=== PATIENT | female | born 1970 | race Caucasian/White ===

== ENCOUNTER 2020-11-18 07:43 | Observation (INO) | payer OTHER ==
[2020-11-18] MEDS ORDERED: ASPIRIN EC 325 MG TAB PO ONE (08:30)
[2020-11-18 08:48] LABS: Basophils % (Auto) 0.3 % (0.0-1.8); Eosinophils # (Auto) 0.1 K/mm3 (0.0-0.4); Eosinophils % (Auto) 1.2 % (0.0-4.3); Hematocrit 37.3 % (30.3-42.9); Hemoglobin 12.5 gm/dl (10.1-14.3); Lymphocytes # (Auto) 1.6 K/mm3 (1.2-5.4); Mean Corpuscular HGB Conc 34 % (30-34); Mean Corpuscular Volume 93 fl (79-97); Monocytes # (Auto) 0.4 K/mm3 (0.0-0.8); Monocytes % (Auto) 8.9 % (0.0-7.3); Platelet Count 379 K/mm3 (140-440); Red Blood Count 4.02 M/mm3 (3.65-5.03)
[2020-11-18 08:59] LABS: INR 0.94 (0.87-1.13)
[2020-11-18 09:00] LABS: Partial Thromboplastin Time 32.3 Sec. (24.2-36.6)
[2020-11-18] MEDS ORDERED: SODIUM CHLORIDE 0.9% 500 ML 500 ML IV SCH ×2 (09:00→14:00)
[2020-11-18 09:04] LABS: Blood Urea Nitrogen 6 mg/dL (7-17); Calcium 8.8 mg/dL (8.4-10.2); Hemolysis Index 12
[2020-11-18 09:08] LABS: BUN/Creatinine Ratio 15
[2020-11-18] MEDS ORDERED: HEPARIN/NS 5000 UNIT/500ML 1,000 ML IR ONE (09:23)
[2020-11-18] MEDS ORDERED: VERAPAMIL 5 MG/2 ML INJ ONE (09:23)
[2020-11-18] MEDS: MIDAZOLAM 2 MG/2 ML INJ ONE ×3 (10:19→10:56)
[2020-11-18] MEDS: fentaNYL 100 MCG/2 ML INJ ONE ×2 (10:19→10:41)
[2020-11-18] MEDS: HEPARIN 10,000 UNITS/10 ML VIAL ONE ×3 (10:20→10:52)
[2020-11-18] MEDS: LIDOCAINE (2%) 20 MG/1 ML VIAL 20 ML MDV INFILTRATI ONE ×3 (10:20→10:54)
[2020-11-18] MEDS: NITROGLYCERIN SYRINGE 3 ML ONE ×2 (10:20→10:43)
[2020-11-18] MEDS ORDERED: ATROPINE 0.1% (1 MG/10 ML) CARDIAC SYRINGE ONE (10:56)
[2020-11-18] MEDS ORDERED: PRASUGREL 10 MG TAB PO ONE (11:07)
[2020-11-18] MEDS ORDERED: ALUM-MAG HYDROXIDE-SIMETHICONE 200-200-20MG/5ML ORAL LIQD 30 ML ONE (11:08)
--- NOTE | 2020-11-18 11:35 | Cardiac Catherization Report ---
LEFT HEART CATHETERIZATION REFERRING PHYSICIAN: Dr. Giulia Kenyon. INDICATION FOR PROCEDURE: The patient is a very pleasant 50-year-old [place] woman who had an abnormal EKG with very typical chest pain radiating to the left arm. Nonsmoker. Continues to have chest pain despite multiple antianginal medications, referred for left heart catheterization. Risks, benefits, alternatives explained at length prior to obtaining informed consent. PROCEDURE IN DETAIL: The patient was brought to the photographic laboratory supervisor in a postabsorptive state, prepped and draped in sterile fashion. Louis's test in right hand was normal. A 2 mL of 2% lidocaine used to anesthetize the right wrist. A standard 6-Polish hydrophilic sheath used to cannulate the right radial artery via modified Seldinger technique. All exchanges performed to exchange a J-tip guidewire. JL3.5 catheter used to engage the left main. No dampening or ventricularization. Cineangiography performed in all projections. JR4 catheter was used to cross the aortic valve under fluoroscopic guidance. Left ventriculography performed in 30 RUIZ and 30 RAMESH projections via hand injections, catheter flushed. Manual pullback performed with continuous pressure monitoring. Catheter used to engage the right coronary. No dampening or ventricularization. Cineangiography performed in all projections. Next, catheter removed from the body. She developed some right radial spasm. We changed to a groin approach. A 6-Polish sheath placed in the right common femoral artery via modified Seldinger technique. DATA: Aortic pressure is 140/60, LV pressure is 140. LVP of 12 mmHg. Left ventriculography revealed normal systolic performance with estimated ejection fraction of 55-60%. No evidence of aortic stenosis. The patient remained in normal sinus rhythm throughout the procedure. CORONARY ANATOMY: This is a right dominant system. Left main without significant disease, bifurcates left anterior descending and left circumflex. Left circumflex, moderate sized vessel, courses AV groove. No significant disease. LAD is a moderate sized vessel, courses anterior intergroove, wraps around the apex. There is a 95% ulcerated proximal/high mid LAD stenosis clearly the culprit vessel. JANY 3 flow is identified. The right coronary is a moderate sized vessel, courses AV groove. No significant disease. The patient upon injection of the left system developed chest pain, hypotension and ST depression. Given active symptoms, ST changes and culprit lesion, we decided to proceed with PCI urgently. Heparin given. Abnormal ACT is confirmed. Using EBU 3.5 guide to engage the left main. A [place] wire to cross the lesion without difficulty. We used a 2.75 x 15 [place] drug-eluting stent deployed at 14 ELYSE for 30 seconds. Excellent angiographic result. Intravascular ultrasound was performed, multiple passes were made, reveals well apposed and well expanded stent. No complications. Final angiogram reveals excellent result, JANY 3 flow, no evidence of complication or dissection. I directly supervised the administration of moderate sedation with fentanyl and Versed from 10:40 a.m. to 11:20 a.m. No immediate complications. CONCLUSIONS: 1. Severe single vessel coronary artery disease with ulcerated culprit 95% high mid/proximal LAD stenosis. Successful IVUS guided percutaneous coronary intervention and placement of drug-eluting stent (Tr 2.75 x 15) with excellent final angiographic and ultrasonographic results. No other significant obstructive disease noted. 2. Preserved left ventricular systolic performance, estimated ejection fraction of 55-60%. 3. No evidence of aortic stenosis. 4. Normal LVEDP. The patient has been loaded with aspirin and Plavix, we will initiate statin therapy. Hold off on any beta blockade due to baseline sinus bradycardia. The patient is already on ARB. The patient is clinically stable, chest pain free. We will admit overnight, standard groin radial care. Aspirin, Effient, statin therapy. Discussed with her son, Bulmaro at [phone] at length. Anticipate a.m. discharge. JOB# [id number] SBM/NTS
[2020-11-18] MEDS: HYDROcodone/ACETAMINOPHEN 5-325 MG TAB PO PRN ×2 (12:33→18:50)
[2020-11-18] MEDS ORDERED: SODIUM CHLORIDE 0.9% 1000 ML 1,000 ML ONE (13:53)
[2020-11-18] MEDS: SODIUM CHLORIDE 0.9% 1000 ML 1,000 ML IV SCH (17:06)
[2020-11-19 06:31] LABS: Basophils % (Auto) 0.2 % (0.0-1.8); Eosinophils % (Auto) 0.6 % (0.0-4.3); Hematocrit 33.4 % (30.3-42.9); Lymphocytes # (Auto) 1.9 K/mm3 (1.2-5.4); Lymphocytes % (Auto) 24.7 % (13.4-35.0); Mean Corpuscular HGB Conc 33 % (30-34); Mean Corpuscular Volume 95 fl (79-97); Monocytes # (Auto) 0.6 K/mm3 (0.0-0.8); Monocytes % (Auto) 7.6 % (0.0-7.3); Platelet Count 357 K/mm3 (140-440); Red Blood Count 3.51 M/mm3 (3.65-5.03); Red Cell Distribution Width 14.3 % (13.2-15.2)
[2020-11-19 06:58] LABS: Creatine Kinase MB 4.8 ng/mL (0.0-4.0)
[2020-11-19 07:02] LABS: BUN/Creatinine Ratio 15; Blood Urea Nitrogen 6 mg/dL (7-17); Calcium 8.6 mg/dL (8.4-10.2); Chol/HDL Ratio 3.81 %; HDL Cholesterol 49 mg/dL (40-59); Hemolysis Index 13; LDL Cholesterol,Direct 135 mg/dL (50-130)
[2020-11-19] MEDS: SODIUM CHLORIDE 0.9% 1000 ML 1,000 ML IV SCH (08:37)
--- NOTE | 2020-11-19 09:21 | XRay Report ---
CHEST 1 VIEW INDICATION: post pci. COMPARISON: None FINDINGS: SUPPORT DEVICES: None. HEART: Within normal limits. LUNGS/PLEURA: No acute air space or interstitial disease. ADDITIONAL FINDINGS: None. IMPRESSION: 1. No acute findings. Signer Name: Damien Almonte MD Signed: 11/19/2020 9:16 AM Workstation Name: [id number]
[2020-11-19] MEDS ORDERED: PRASUGREL 10 MG TAB PO SCH (10:00)
[2020-11-19] MEDS ORDERED: ASPIRIN 81 MG TAB CHEW PO SCH (10:00)
--- NOTE | 2020-11-19 11:42 | Short Stay Summary ---
Short Stay Documentation Date of service: 11/19/20 - History H&P: obtained from office - Allergies and Medications Current Medications: Allergies No Known Allergies Allergy (Verified 11/18/20 08:12) Home Medications Medication Instructions Recorded Confirmed Last Taken Type Aspirin [Aspirin BABY CHEW TAB] 81 mg PO QDAY 11/18/20 11/18/20 11/17/20 History 81 mg Benzonatate [Tessalon Perles] 100 mg PO Q8HR 11/18/20 11/18/20 11/17/20 History 1 tab ISOSORBIDE MONOnitrate [Imdur ER] 30 mg PO DAILY 11/18/20 11/18/20 11/17/20 History 1 tab [place]-3 Fatty Acids/Fish Oil [Fish 1,000 mg PO DAILY 11/18/20 11/18/20 11/17/20 History Oil] 1 tab Omeprazole 40 mg PO DAILY 11/18/20 11/18/20 11/17/20 History 1 tab Telmisartan/Hydrochlorothiazid 1 each PO DAILY 11/18/20 11/18/20 11/17/20 History [Telmisartan-Hctz 40-12.5 mg Tb] 1 tab amLODIPine [Norvasc] 5 mg PO DAILY 11/18/20 11/18/20 11/17/20 History 1 tab hydrOXYzine HCL [Atarax] 25 mg PO TID 11/18/20 11/18/20 11/17/20 History 1 tab Active Medications Hydrocodone Bitart/Acetaminophen (Hydrocodone/Acetaminophen 5-325 Mg Tab) 1 each PO Q6H PRN PRN Reason: Pain, Moderate (4-6) Last Admin: 11/18/20 18:50 Dose: 1 each Documented by: Aspirin (Aspirin 81 Mg Tab Chew) 81 mg PO QDAY [facility] Last Admin: 11/19/20 09:20 Dose: 81 mg Documented by: Atorvastatin Calcium (Atorvastatin 40 Mg Tab) 40 mg PO QHS [facility] Last Admin: 11/18/20 23:12 Dose: 40 mg Documented by: Sodium Chloride (Nacl 0.9% 1000 Ml) 1,000 mls @ 50 mls/hr IV DIRECT [facility] Last Admin: 11/19/20 08:37 Dose: 50 mls/hr Documented by: Isosorbide Mononitrate (Isosorbide Mononitrate Er 30 Mg Tab) 30 mg PO DAILY [facility] Last Admin: 11/19/20 09:20 Dose: 30 mg Documented by: Prasugrel (Prasugrel 10 Mg Tab) 10 mg PO QDAY [facility] Last Admin: 11/19/20 09:20 Dose: 10 mg Documented by: - Physical exam Integumentary: other ([facility] site c/d/i, no bleeding or hematoma noted) - Brief post op/procedure progress note Date of procedure: 11/19/20 Pre-op diagnosis: chest pain Post-op diagnosis: other (CAD) Procedure: LHC with PCI - see dictated cath report Anesthesia: local Estimated blood loss: none Condition: stable - Hospital course Hospital course: Pt presented for scheduled elective LHC and subsequently underwent LHC with PCI of LAD. She was admitted for observation overnight. She remained clinically and hemodynamically stable throughout admission and is medically stable for discharge home today. - Disposition Condition at discharge: Good Disposition: DC-01 TO HOME OR SELFCARE - Discharge Diagnoses (1) CAD (coronary artery disease) Status: Chronic (2) Stented coronary artery Status: Chronic (3) HTN (hypertension) Status: Chronic (4) Hyperlipidemia Status: Chronic (5) Sinus bradycardia Status: Acute Short Stay Discharge Plan Activity: advance as tolerated Diet: low fat, low cholesterol, low salt Wound: open to air, keep clean and dry, per your surgeon's advice Follow up with: LILIANA,SON [Other] - 7 Days TYLER YOON MD [Staff Physician] - 7 Days Prescriptions: AtorvaSTATin [Lipitor] 40 mg PO QHS #90 tablet Prasugrel [Effient] 10 mg PO QDAY #90 tablet
[2020-11-19 12:06] VITALS: BP 116/76
== END 2020-11-19 17:36 | disposition home or self-care (01) ==
LOC: CATHLABREC 07:43 → 4A 11:33
PROVIDERS: ADMIT Internal Medicine; ATTEND Internal Medicine
DX: I25.10 Atherosclerotic heart disease of native coronary artery without angina pectoris (principal); I51.7 Cardiomegaly; R00.1 Bradycardia, unspecified; I10 Essential (primary) hypertension; E78.2 Mixed hyperlipidemia; Z95.1 Presence of aortocoronary bypass graft; Z79.82 Long term (current) use of aspirin; Z79.899 Other long term (current) drug therapy
CPT/HCPCS: 36415; 71045; 80048; 80061; 82550; 82553; 82962; 84484; 85025; 85347; 85610; 85730; 92978; 93005; 93458; 96360; 96361; A9270; C1753; C1769; C1874; C1887; C1894; C9600; G0378; J1644; J2250; J3010; J7030; J7040; 92928; J0461; Q9967